=== PATIENT | female | born 2000 | race Caucasian/White ===

== ENCOUNTER 2023-07-21 10:40 | Inpatient (IN) | payer MEDICAID, SELFPAY ==
[2023-07-21] VITALS (42 sets, daily range): BP systolic 93–133; BP diastolic 52–80; PULSE 66–104; RESP 15–17; TEMP 36.7; O2SAT 97–100; BMI 40.4
--- NOTE | 2023-07-21 07:33 | P.HP_ITS ---
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 She presented as a late transfer of care after initial care in [place] and recent moved to the area about 6 to 8 weeks ago. Denies cramping/contractions, LOF, vaginal bleeding. Good movement. 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 PFSH: Medical History (Updated 07/21/23 @ 08:17 by Shraddha George DO) Anxiety Depression Asthma History History History 2 2 Term 1 0 Miscarriages/Ectopic 0 Living Children 1 Physical Exam 2 Const: COMMON NORMALS: no acute distress, healthy appearing and alert Resp: COMMON NORMALS: normal respiratory effort and clear to auscultation bilaterally Cardio: COMMON NORMALS: regular rate, regular rhythm, S1 normal heart sound present, S2 normal heart sound present and No murmurs present (Cardio) GI: OTHER: Gravid abdomen size consistent with dates Extremity: NARRATIVE EXTREMITY EXAM: No LE edema Psych: COMMON NORMALS: mental status grossly normal and speech normal Data 07/21/23 08:05 Results Labs OB ([facility]): 2 Blood Type Pending 07/21/23 Antibody Screen Pending 07/21/23 Hct 35.5 % (36-47) L 07/21/23 Hgb 12.40 g/dL (11.27-16.99) 07/21/23 Rho(D) Type Pending 07/21/23 Plt Count 134 10^3/cmm (157-399) L 07/21/23 A&P Assessment and plan (1) Term : (2) Gestational thrombocytopenia: (3) Encounter for induction of labor: Plan GIDEON GA is a 23 year old female at 40w 3d based on LMP presenting for induction of labor with past medical history of depression and anxiety not currently on medications, childhood asthma, gestational thrombocytopenia, tobacco use. Routine labs- CBC, Blood typing. GBS ppx. Initial SVE fingertip/thick/high- plan for initial dose cytotec. Category I FHT. Intermittent EFM per protocol as long as Category I FHT. May have epidural when desired- fentanyl protocol as well. Attestations 2 Medical Necessity Statement*: GIDEON GA's hospital stay will require greater than 2 midnights for routine labor and delivery and care. Coding Level of Care Code Acute Code for Chg Fwd Diagnoses Term Z34.90 Gestational thrombocytopenia O99.119; D69.6 Encounter for induction of labor Z34.90
[2023-07-21] MEDS: dextrose 5%-lactated ringers 1,000 ML 125 ML IV ×2 (08:19→18:16)
[2023-07-21] MEDS: ampicillin 2,000 MG in sodium chloride 0.9% (plus) 50 ML 100 MG IV (08:20)
[2023-07-21 08:23] LABS: Basophils % 0.2 %; Eosinophils # 0.1 10^3/uL (0.0-0.8); Eosinophils % 1.1 %; Hematocrit 35.5 % (36-47); Lymphocytes # 2.2 10^3/uL (0.8-4.8); Lymphocytes % 18.9 %; Mean Corpuscular HGB Conc 34.9 g/dL (30-55); Mean Corpuscular Hemoglobin 32.3 pg (27-33); Mean Corpuscular Volume 92.4 fl (85-98); Mean Platelet Volume 11.8 fL (7.4-10.4); Monocytes # 0.6 10^3/uL (0.2-0.9); Monocytes % 5.2 %; Neutrophils # 8.52 10^3/uL (1.8-7.7); Neutrophils % 73.9 %; Nucleated Red Blood Cells % 0 %; Platelet Count 134 10^3/cmm (157-399); Red Blood Count 3.84 10^6/uL (3.85-5.65); Red Cell Distribution Width 13.8 % (12.1-15.1); White Blood Count 11.53 10^3/uL (3.29-11.43)
[2023-07-21] MEDS: miSOPROStol 100 mcg tablet 25 MCG VAGINAL ×2 (08:48→12:54)
[2023-07-21 09:33] LABS: Amphetamines Screen Urine Negative (Negative); Barbiturates Screen Urine Negative (Negative); Benzodiazepines Screen Urine Negative (Negative); Cocaine Screen Urine Negative (Negative); Opiate Screen Urine Negative (Negative); PCP Screen Urine Negative (Negative); THC Screen Urine Negative (Negative)
[2023-07-21] MEDS: ampicillin 1,000 MG in sodium chloride 0.9% (plus) 50 ML 100 MG IV ×3 (12:17→19:26)
[2023-07-21] MEDS: fentaNYL 50 mcg/mL INJ 2mL IVP (15:38)
[2023-07-21] MEDS: lactated ringers 1,000 ML 999 ML IV ×2 (15:39→16:40)
[2023-07-21] MEDS: ROPivacaine syringe 100 MG/50 ML SYRINGE 10 MG EPIDURAL ×2 (16:58→21:19)
--- NOTE | 2023-07-21 17:30 | P.ANESASSM_ITS ---
Pre-Anesthetic Assessment Height/Weight: Height 1.57 m Weight 100.244 kg Temp Pulse Resp BP O2 Del Method 98.1 F 79 16 112/63 Room Air 07/21/23 15:40 07/21/23 15:44 07/21/23 15:44 07/21/23 15:44 07/21/23 15:44 Epidural Familial anesthetic complications: Platelets dropped with last labor requiring timed epdiural catheter removal; nursing staff informed that catheter must be pulled at platelets > 100, patient desires to proceed after informed concsent regarding epidural hematoma Was Beta Glory taken within 24 hours: N/A Was Clonidine taken within 24 hours: N/A Social Tobacco and No alcohol Airway Mallampati: Class III Dentition: full Anesthetic Plan ASA status: 2 Anesthesia: Regional (specify below) Risk of > 500 ml blood loss (7ml/kg in children): Yes, adequate IV access and fluids planned Medications/Allergies Home Medications Medication Instructions Recorded Confirmed Last Taken Type No Known Home Medications 07/21/23 07/21/23 Unknown History Allergies Allergy/AdvReac Type Severity Reaction Status Date / Time No Known Allergies Allergy Verified 07/21/23 09:56 Current Medications Generic Name Dose Route Start Last Admin Trade Name Freq PRN Reason Stop Dose Admin Fentanyl 25 - 100 mcg 07/21/23 07:34 07/21/23 15:38 Fentanyl 50 Mcg/Ml Inj 2ml IVP 25 mcg Q1H PRN Administration SEVERE PAIN Dextrose/Lactated Ringer's 1,000 mls @ 125 mls/hr 07/21/23 07:45 07/21/23 15:39 Dextrose 5%-Lactated Ringers IV Infused .Q8H MYAH Infusion Ampicillin Sodium 1,000 mg/ 50 mls @ 100 mls/hr 07/21/23 11:45 07/21/23 16:57 Sodium Chloride IV Infused Q4H MYAH Infusion Protocol Lactated Ringer's 1,000 mls @ 999 mls/hr 07/21/23 15:31 07/21/23 16:40 Lactated Ringers IV 999 mls/hr .Q1H1M PRN Administration See label comments Ropivacaine 100 mg in 50 mls @ 10 mls/hr 07/21/23 15:45 07/21/23 16:58 Naropin Syringe EPIDURAL 10 mls/hr .Q5H MYAH Administration PFSH Anesthesia Medical History (Updated 07/21/23 @ 08:17 by Shraddha George DO) Anxiety Depression Asthma Female Reproductive History : 2 Data Anesthesia 07/21/23 08:05 Short CBC 07/21/23 Range/Units 08:05 WBC 11.53 H (3.29-11.43) 10^3/uL Hgb 12.40 (11.27-16.99) g/dL Hct 35.5 L (36-47) % MCV 92.4 (85-98) fl Plt Count 134 L (157-399) 10^3/cmm Neut % (Auto) 73.9 % Neut # (Auto) 8.52 H (1.8-7.7) 10^3/uL Blood Bank 07/21/23 07/21/23 08:05 08:40 Blood Type Cancelled A Positive Rho(D) Type Cancelled Rh positive Antibody Screen Cancelled Negative Cardiac Studies: 2 No Data to Display
--- NOTE | 2023-07-21 17:32 | ANES.PROC ---
Anesthesia Procedures Procedure/Date: 07/21/23 Epidural: Time Out Performed: Yes Consents Signed: Procedure Consent Consent: requested by attending/covering physician, from patient, from other, risks and benefits reviewed and patient agrees to proceed Lumbar Level: L3-L4 Epidural position: sitting Epidural procedure: sterile prep of area, 1% lidocaine to numb the area, 18 g needle, negative for paresthesia passed, neg for paresthesia, test dose given, 1.5% xylocaine 1:200k epi (5), 0.2% Ropivacaine bolus ml (5), placed PCEA, no systemic response, sterile dressing applied, L.U.D. no apparent complications and 0.2% Ropiavacaine @ mls/hr (10) Additional Comments: SUMMER at 7 cm, but aspirated heme at 11, 12, 13 cm catheter, so re-performed with SUMMER at 6.5 cm. Threaded to 12.5 cm with adequate pain relief with after bolus
[2023-07-21] MEDS: oxytocin 30 UNIT/500 ML BAG IV (20:07)
[2023-07-22] MEDS: lactated ringers 1,000 ML 999 ML IV (00:30)
--- NOTE | 2023-07-22 01:23 | P.PCNOB_ITS ---
Delivery Note: Date of delivery: July 22, 2023 Pre-delivery diagnoses: Term Gestational thrombocytopenia Post-delivery diagnoses: Delivery of viable male Gestational thrombocytopenia Procedure: Spontaneous vaginal delivery Delivering Physician: Shraddha George DO Estimated blood loss (mL): 100 Pre-Delivery Course: Admitted on 07/21/2023 for induction of labor. Initially with SVE of finger tip/thick/high. FHT Category I. She was given 1 dose of Cytotec and progressed to 1.5/40/-3 after 4 hours. She was subsequently given another dose Cytotec. Approximately 3 hours after second dose Cytotec patient with spontaneous rupture membranes at 1525 initially noted to be with clear fluid. Following she received an epidural and continued to contract. heart tones at this time were category II with intermittent variable decelerations. Fluid was noted to change to light meconium. Her contractions spaced out and she was started on low-dose Pitocin however variable decelerations worsened after starting Pitocin and so was discontinued. She continued to progress appropriately to complete. Delivery: Patient progressed to complete. Patient placed in lithotomy position. Patient pushed with adequate effort. Head delivered in OA position, tight nuchal cord was present and was unable to be reduced and so was delivered through. Shoulders and rest of body delivered without difficulty with adequate epidural anesthesia. Mouth and nares bulb suctioned. placed on maternal abdomen. was noted to have poor tone and without vigor and so cord was clamped and cut after only approximately 15-second delay. Spontaneous cry was noted directly after cord was clamped and cut. Infant was transferred to the warmer for resuscitation. Placenta spontaneously delivered and noted to be intact. Pitocin was started. Fundus was noted to be firm with massage. The vagina and cervix were inspected and no lacerations were noted. Small amount of clot was expressed with minimal stage and so uterine sweep was performed with some clot removed from lower uterine segment. Following fundus was again noted to be firm. Male born at 0108 with 7/9 weighing 6 pounds 14 ounces. Placenta noted to be intact with centrally inserted umbilical cord and three- vessel cord. Complications: Maternal none Infant none History History History 2 Term 1 0 Miscarriages/Ectopic 0 Living Children 1 A&P Assessment and plan (1) Spontaneous vaginal delivery: Coding Level of Care Code Acute Code for Chg Fwd Diagnoses Spontaneous vaginal delivery O80
[2023-07-22 01:55] LABS: Hematocrit 39.8 % (36-47); Mean Corpuscular HGB Conc 33.4 g/dL (30-55); Mean Corpuscular Hemoglobin 31.4 pg (27-33); Mean Corpuscular Volume 94.1 fl (85-98); Mean Platelet Volume 11.8 fL (7.4-10.4); Platelet Count 112 10^3/cmm (157-399); Red Blood Count 4.23 10^6/uL (3.85-5.65); Red Cell Distribution Width 13.6 % (12.1-15.1); White Blood Count 17.77 10^3/uL (3.29-11.43)
[2023-07-22 02:40] LABS: Absolute Segmented Neutrophil 14.2 10/cmm (1.6-7.1); Segmented Neutrophils 80 %; Total Cells Counted 100 (0-100)
[2023-07-22 02:41] LABS: Eosinophils 0 %; Lymphocytes 12 %; Monocytes Absolute 1.4 10^3/cmm (0.1-0.6); Platelet Estimate Decreased (Normal)
[2023-07-22 04:40] VITALS: BP 106/57; PULSE 98; RESP 16; TEMP 36.7; O2SAT 96
[2023-07-22 05:10] VITALS: BP 110/62; PULSE 99; RESP 16; TEMP 36.7; O2SAT 97
--- NOTE | 2023-07-22 06:03 | PC.NURSE ---
Refer to centricity for patient vitals between [id number] on this shift.
[2023-07-22 07:10] VITALS: BP 110/72; PULSE 85; RESP 17; O2SAT 98
[2023-07-22 09:45] VITALS: BP 114/69; PULSE 85; RESP 18; TEMP 36.7; O2SAT 98
[2023-07-22] MEDS: prenatal vitamin Capsule 1 CAP PO (09:55)
[2023-07-22] MEDS: ibuprofen 800 mg tablet PO ×3 (09:56→20:45)
[2023-07-22] MEDS: docusate sodium 100 mg Capsule PO ×2 (09:56→20:45)
[2023-07-22 14:06] LABS: Hematocrit 35.3 % (36-47); Mean Corpuscular Hemoglobin 31.4 pg (27-33); Mean Corpuscular Volume 92.4 fl (85-98); Mean Platelet Volume 11.8 fL (7.4-10.4); Platelet Count 125 10^3/cmm (157-399); Red Blood Count 3.82 10^6/uL (3.85-5.65); Red Cell Distribution Width 13.8 % (12.1-15.1); White Blood Count 15.62 10^3/uL (3.29-11.43)
--- NOTE | 2023-07-22 14:27 | ANE.PACU2 ---
Inpatient post-anesthesia follow up: Airway intact: Yes Vital signs: Temperature 98.0 F Pulse Rate 99 Respiratory Rate 16 Blood Pressure 110/62 Pulse Oximetry 97 Oxygen Delivery Me thod Room Air Oxygen Flow Rate Fraction of Inspir ed Oxygen Hydration adequate: Yes Nausea and vomiting: No Pain level: 2 Mental status: Baseline Epidural Start/End: Epidural Start Date: 07/21/23 Epidural Start Time: 16:25 Epidural End Date: 07/22/23 Epidural End Time:
[2023-07-22 16:23] VITALS: BP 111/70; PULSE 89; RESP 17; TEMP 37.1; O2SAT 97
[2023-07-23 04:00] VITALS: BP 110/65; PULSE 71; RESP 15; TEMP 36.5; O2SAT 99
--- NOTE | 2023-07-23 07:41 | P.DS_ITS ---
Discharge Providers ADMINISTRATIVE SUPPORT SPECIALIST Date of Admission: 07/21/23 10:40 Date of Discharge: 07/23/23 Attending Provider at Admission: Shraddha George DO Attending Provider at Discharge: Shraddha George DO Diagnoses at Discharge Discharge Diagnosis (1) Spontaneous vaginal delivery: Status: Acute Reason for Visit Reason for Visit: INDUCTION OF LABOR Hospital Course Hospital Course Pre-Delivery Course: Admitted on 07/21/2023 for induction of labor. Initially with SVE of fingertip/thick/high. FHT Category I. She was given 1 dose of Cytotec and progressed to 1.5/40/-3 after 4 hours. She was subsequently given another dose Cytotec. Approximately 3 hours after second dose Cytotec patient with spontaneous rupture membranes at 1525 initially noted to be with clear fluid. Following she received an epidural and continued to contract. heart tones at this time were category II with intermittent variable decelerations. Fluid was noted to change to light meconium. Her contractions spaced out and she was started on low-dose Pitocin however variable decelerations worsened after starting Pitocin and so was discontinued. After pitocin discontinuation variable decelerations resolved and FHT noted to be category I. She continued to progress appropriately to complete. Delivery: Patient progressed to complete. Patient placed in lithotomy position. Patient pushed with adequate effort. Head delivered in OA position, tight nuchal cord was present and was unable to be reduced and so was delivered through. Shoulders and rest of body delivered without difficulty with adequate epidural anesthesia. Mouth and nares bulb suctioned. Infant placed on maternal abdomen. Infant was noted to have poor tone and without vigor and so cord was clamped and cut after only approximately 15-second delay. Spontaneous cry was noted directly after cord was clamped and cut. was transferred to the warmer for resuscitation. Placenta spontaneously delivered and noted to be intact. Pitocin was started. Fundus was noted to be firm with massage. The vagina and c ervix were inspected and no lacerations were noted. Small amount of clot was expressed with minimal stage and so uterine sweep was performed with some clot removed from lower uterine segment. Following fundus was again noted to be firm. Male born at 0108 with 7/9 weighing 6 pounds 14 ounces. Placenta noted to be intact with centrally inserted umbilical cord and three- vessel cord. Complications: Maternal none Infant none EBL 100cc Hospital course: Patient underwent on 07/22/2023 at 40 weeks 4 days. course was uncomplicated. Following delivery patient ambulated well, tolerated a normal diet without nausea or vomiting. Pain was well-controlled on PO medications, breast-feeding, no leg/calf pain, no calf/leg swelling, normal urination, passing gas and normal bowel movements. Vaginal bleeding thin lochia and decreasing. labs significant for hemoglobin of 12 down from 12.4 on admission. Her platelets have been stable. Follow-up planned for 2 and 6 weeks . Warning signs for endometritis, pre-eclampsia, DVT/PE, mastitis were reviewed, discussed additional warning signs including increased vaginal bleeding, worsening abdominal pain. Pelvic rest and activity precautions reviewed as well. She is discharged on 07/23/2023 in stable condition. Information Peripartum Data: Delivery Method: Vaginal Physical Exam Const: COMMON NORMALS: no acute distress, healthy appearing and alert Resp: COMMON NORMALS: normal respiratory effort and clear to auscultation bilaterally AUSCULTATION: clear to auscultation bilaterally Cardio: COMMON NORMALS: regular rate, regular rhythm, S1 normal heart sound present, S2 normal heart sound present and No murmurs present (Cardio) RATE: regular rate RHYTHM: regular rhythm HEART SOUNDS: S1 normal heart sound present and S2 normal heart sound present : OTHER: Uterine fundus firm and below the umbilicus Extremity: NARRATIVE EXTREMITY EXAM: No LE edema Neuro: SENSORIUM/ORIENTATION: Yes alert Psych: COMMON NORMALS: mental status grossly normal and speech normal SPEECH: Yes normal speech Urinary Catheter Management: Clark Latex: Cath Placed During This Visit: yes Reason for Continuing Indwelling Catheter: Acute Urinary Retention or Obstruction Urinary Catheter Date of Insertion: 07/21/23 Urinary Catheter Time of Insertion: 17:30 History History History 2 Term 2 0 Miscarriages/Ectopic 0 Living Children 2 Discharge Data Studies Completed and Pending Laboratory Results WBC 15.62 10^3/uL (3.29-11.43) H 07/22/23 13:39 RBC 3.82 10^6/uL (3.85-5.65) L 07/22/23 13:39 Hgb 12.00 g/dL (11.27-16.99) 07/22/23 13:39 Hct 35.3 % (36-47) L 07/22/23 13:39 MCV 92.4 fl (85-98) 07/22/23 13:39 MCH 31.4 pg (27-33) 07/22/23 13:39 MCHC 34.0 g/dL (30-55) 07/22/23 13:39 RDW 13.8 % (12.1-15.1) 07/22/23 13:39 Plt Count 125 10^3/cmm (157-399) L 07/22/23 13:39 MPV 11.8 fL (7.4-10.4) H 07/22/23 13:39 Neut % (Auto) 73.9 % 07/21/23 08:05 Lymph % (Auto) 18.9 % 07/21/23 08:05 [place] % (Auto) 5.2 % 07/21/23 08:05 Eos % (Auto) 1.1 % 07/21/23 08:05 Baso % (Auto) 0.2 % 07/21/23 08:05 Neut # (Auto) 8.52 10^3/uL (1.8-7.7) H 07/21/23 08:05 Lymph # (Auto) 2.2 10^3/uL (0.8-4.8) 07/21/23 08:05 [place] # (Auto) 0.6 10^3/uL (0.2-0.9) 07/21/23 08:05 Eos # (Auto) 0.1 10^3/uL (0.0-0.8) 07/21/23 08:05 Baso # (Auto) 0.0 10^3/uL (0.0-0.1) 07/21/23 08:05 Nucleated RBC % (auto) 0 % 07/21/23 08:05 Total Counted 100 (0-100) 07/22/23 01:45 Atypical Lymphs % Not Reportable 07/22/23 01:45 Segmented Neutrophils 80 % 07/22/23 01:45 Abs Segm Neuts (Man) 14.2 10/cmm (1.6-7.1) H 07/22/23 01:45 Band Neutrophils Not Reportable 07/22/23 01:45 Lymphocytes (Manual) 12 % 07/22/23 01:45 Monocytes (Manual) 8.0 % 07/22/23 01:45 Absolute Monocytes 1.4 10^3/cmm (0.1-0.6) H 07/22/23 01:45 Eosinophils (Manual) 0 % 07/22/23 01:45 Absolute Eosinophils 0.0 10^3/cmm (0.0-0.7) 07/22/23 01:45 Basophils (Manual) 0.0 % 07/22/23 01:45 Absolute Basophils 0.0 10^3/cmm (0.0-0.2) 07/22/23 01:45 Nucleated RBCs # 0.0 /100WBC 07/21/23 08:05 Platelet Estimate Decreased (Normal) L 07/22/23 01:45 Urine Opiates Screen Negative ng/mL (Negative) 07/21/23 07:30 Ur Barbiturates Screen Negative ng/mL (Negative) 07/21/23 07:30 Ur Phencyclidine Scrn Negative ng/mL (Negative) 07/21/23 07:30 Ur Amphetamines Screen Negative ng/mL (Negative) 07/21/23 07:30 U Benzodiazepines Scrn Negative ng/mL (Negative) 07/21/23 07:30 Urine Cocaine Screen Negative ng/mL (Negative) 07/21/23 07:30 U Marijuana (THC) Screen Negative ng/mL (Negative) 07/21/23 07:30 Blood Type A Positive 07/21/23 08:40 Rho(D) Type Rh positive 07/21/23 08:40 Antibody Screen Negative 07/21/23 08:40 Vitals Last Vital Signs Temp 97.7 F 07/23/23 04:00 Pulse 71 07/23/23 04:00 Resp 15 07/23/23 04:00 BP 110/65 07/23/23 04:00 Pulse Ox 99 07/23/23 04:00 O2 Del Method Room Air 07/23/23 04:00 Results Labs OB ([facility]): Blood Type A Positive 07/21/23 Antibody Screen Negative 07/21/23 Hct 35.3 % (36-47) L 07/22/23 Hgb 12.00 g/dL (11.27-16.99) 07/22/23 Rho(D) Type Rh positive 07/21/23 Plt Count 125 10^3/cmm (157-399) L 07/22/23 Urine Opiates Screen Negative ng/mL (Negative) 07/21/23 Ur Barbiturates Screen Negative ng/mL (Negative) 07/21/23 Ur Phencyclidine Scrn Negative ng/mL (Negative) 07/21/23 Ur Amphetamines Screen Negative ng/mL (Negative) 07/21/23 U Benzodiazepines Scrn Negative ng/mL (Negative) 07/21/23 Urine Cocaine Screen Negative ng/mL (Negative) 07/21/23 U Marijuana (THC) Screen Negative ng/mL (Negative) 07/21/23 Discharge Plan Discharge Patient Disposition: Home Condition: Stable Prescriptions: New ibuprofen 800 mg Tablet 800 mg PO TID Qty: 90 0RF docusate sodium 100 mg Capsule 100 mg PO BID Qty: 60 0RF -U 106.5-1 mg Capsule 1 cap PO DAILY Qty: 90 0RF Discharge Orders: Discharge Order (Routine); Ordered 07/23/23 Ordered By: Shraddha George Referrals: Shraddha George DO [Physician] - 09/03/23 10:00 am (2 week follow up: Aug 06 at 8:30am Both appointments in the [facility]. ) Discharge Diet: Usual diet Discharge Activity: Increase activity as tolerated Patient Instructions: Ibuprofen (By mouth), Vitamins (By mouth), Depression (DC), Caring for Your Baby (DC), OB Discharge Report, OB Food/Drug Interaction Guide, OB Care at Home, Opioid Safety, OB Vaginal Deliveries, Abnormal Bleeding Activity Restrictions/Additional Instructions: Pelvic rest for 6 weeks. Discharge Attestations ADMINISTRATIVE SUPPORT SPECIALIST Time Spent in Discharge Care*: greater than 30 min Coding Level of Care Code Acute Code for Chg Fwd Diagnoses Spontaneous vaginal delivery O80
[2023-07-23 10:00] VITALS: BP 108/52; PULSE 98; RESP 16; TEMP 36.9; O2SAT 98
[2023-07-23] MEDS: ibuprofen 800 mg tablet PO (10:55)
[2023-07-23] MEDS: docusate sodium 100 mg Capsule PO (10:55)
[2023-07-23] MEDS: prenatal vitamin Capsule 1 CAP PO (10:55)
[2023-07-23 15:38] VITALS: BP 112/85; PULSE 89; RESP 16; TEMP 36.7; O2SAT 98
== END 2023-07-23 15:25 | disposition home or self-care (01) | DRG 806 ==
LOC: OBGYN 11:33 → OPOB 07-22 09:19
PROVIDERS: Admitting Provider Family Medicine; Visit Provider Family Medicine
DX: O48.0 Post-term pregnancy (principal); O99.12 Other diseases of the blood and blood-forming organs and certain disorders involving the immune mechanism complicating childbirth; Z37.0 Single live birth; Z3A.40 40 weeks gestation of pregnancy; D69.6 Thrombocytopenia, unspecified; O99.334 Smoking (tobacco) complicating childbirth; O69.81X0 Labor and delivery complicated by cord around neck, without compression, not applicable or unspecified; O77.0 Labor and delivery complicated by meconium in amniotic fluid; O76 Abnormality in fetal heart rate and rhythm complicating labor and delivery
CPT/HCPCS: 36415; 51702; 59025; 59409; 80306; 85007; 85025; 85027; 86850; 86900; 96374; J0290; J2590; J2795; J3010; J7120; J7121

== ENCOUNTER → 2024-05-19 14:17 | Outpatient (BNVA) | payer MEDICAID, SELFPAY | PROVIDERS: Visit Provider Clinical Nurse Specialist Adult Health | DX: J06.9 Acute upper respiratory infection, unspecified (principal); E04.9 Nontoxic goiter, unspecified | CPT/HCPCS: 84443; 87400; 87426 ==

== ENCOUNTER → 2024-07-04 10:56 | Outpatient (BNVA) | payer MEDICAID, SELFPAY | PROVIDERS: PCP Clinical Nurse Specialist Adult Health; Visit Provider Clinical Nurse Specialist Adult Health | DX: F41.9 Anxiety disorder, unspecified (principal); F32.A Depression, unspecified | CPT/HCPCS: 82306; 82728; 83540 ==